=== PATIENT | female | born 2000 | race Hispanic/Latino ===

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

== ENCOUNTER 2021-11-08 00:25 | Emergency (ER) | payer OTHER ==
[2021-11-08 01:24] LABS: Bacteria/HPF None Seen HPF (None Seen); Bilirubin Negative (Negative); Blood, Urine 1+ (Negative); Clarity Turbid (Clear); Glucose, Urine (Dipstick) Normal (Negative); Ketone, Urine Negative (Negative); Leukocyte 500 Leu/uL (Negative); Nitrite Negative (Negative); Protein, Urine (Dipstick) 50 mg/dL (Neg-Trace); Specific Gravity, Urine 1.013 (1.002-1.036); Urobilinogen Normal mg/dL (Less than 2)
[2021-11-08 01:26] LABS: WBC/HPF 21-50 HPF (0-3)
[2021-11-08 01:59] LABS: Pregnancy Test - Urine (BHCG) Negative (Negative); Pregu Control Background? CLEAR/WHITE (CLR/WHITE); Pregu Control Bar Appear? YES (CONTROL BAR)
[2021-11-08 02:00] LABS: Specific Gravity 1.013 (1.002-1.036)
[2021-11-08] MEDS ORDERED: Ketorolac Tromethamine 30 MG/ML VIAL ONE (02:26)
== END 2021-11-08 04:56 | disposition home or self-care (01) ==
LOC: ERS 00:25
DX: N23 Unspecified renal colic (principal)
CPT/HCPCS: 74176; 81003; 81015; 81025; 96372; J1885

== ENCOUNTER 2024-01-24 09:20 | Outpatient (CLI) | payer MEDICAID | END 2024-01-24 09:21 | disposition home or self-care (01) | LOC: BICULT 09:20 | PROVIDERS: ATTEND Family Medicine | DX: Z34.02 Encounter for supervision of normal first pregnancy, second trimester (principal); Z3A.20 20 weeks gestation of pregnancy | CPT/HCPCS: 76805 ==